=== PATIENT | female | born 1965 | race Caucasian/White ===

== ENCOUNTER → 2023-08-25 14:59 | Outpatient (REF) | payer BC, SELFPAY | LOC: RAD 14:59 | PROVIDERS: ATTENDING PHYSICIAN Family Medicine | DX: Z78.0 Asymptomatic menopausal state (principal) | CPT/HCPCS: 73564; 77080 ==

== ENCOUNTER → 2024-06-17 08:57 | Outpatient (REF) | payer BC, SELFPAY | LOC: WDC 08:57 | PROVIDERS: ATTENDING PHYSICIAN Family Medicine | DX: Z12.31 Encounter for screening mammogram for malignant neoplasm of breast (principal) | CPT/HCPCS: 77063; 77067 ==

== ENCOUNTER → 2024-08-27 13:10 | Outpatient (REF) | payer BC, SELFPAY | LOC: RAD 13:10 | PROVIDERS: ATTENDING PHYSICIAN Family Medicine | DX: N95.0 Postmenopausal bleeding (principal) | CPT/HCPCS: 76830; 76856 ==